=== PATIENT | male | born 1960 | race American Indian/Alaskan Native ===

== ENCOUNTER 2020-02-13 00:10 | Emergency (ER) | payer OTHER ==
--- NOTE | 2020-02-13 02:43 | Emergency Department Report ---
ED General Adult HPI - General Chief complaint: Abdominal Pain Stated complaint: UNABLE TO URINATE PUI?: No Time Seen by Provider: 02/13/20 02:09 Source: patient, RN notes reviewed Mode of arrival: Ambulatory Limitations: No Limitations - History of Present Illness Initial comments: The patient was evaluated in the emergency department for symptoms described in the history of present illness. He/she was evaluated in the context of the global COVID-19 pandemic, which necessitated consideration that the patient might be at risk for infection with the virus that causes COVID-19. Institutional protocols and algorithms that pertain to the evaluation of patients at risk for COVID-19 are in a state of rapid change based on in formation released by regulatory bodies including the CDC and federal and state organizations. These policies and algorithms were followed during the patient's care in the emergency department. Please note that these policies, procedures and recommendations changed on a rapid basis. The patient is a pleasant 59-year-old gentleman who is not known to myself previously. He has a history of hypertension and obesity. He presents to the ER today with a complaint of anxiety, and inability to urinate for a few hours. Prior to the symptoms, he denies all symptomatology. He states he only takes blood pressure medication, and does not take Flomax that he is aware of. He thinks his recent outpatient PSA check was "okay", but he is not certain. He denies dysuria, hematuria, testicular pain, and nocturia. A Haynes catheter was placed by nursing team prior to my personal evaluation, after my verbal instruction, 1100 cc of urine were obtained, the patient reports relief of all symptomatology, with exception of very mild anxiety at this time. He denies all other complaints, especially, including chest pain, shortness of breath, fever, chills, loss of taste and loss of smell. -: Sudden Consistency: now resolved Improves with: other (Placement of a Haynes catheter) Worsens with: none Associated Symptoms: denies other symptoms, other (Anxiety, inability to urinate) - Related Data Allergies Allergy/AdvReac Type Severity Reaction Status Date / Time No Known Allergies Allergy Unverified 02/13/20 01:44 ED Review of Systems ROS: Stated complaint: UNABLE TO URINATE Other details as noted in HPI Comment: All other systems reviewed and negative Genitourinary: other (Urinary retention). denies: testicular pain, testicular mass Psychiatric: anxiety ED Past Medical Hx - Past Medical History Previous Medical History?: Yes Hx Hypertension: Yes - Surgical History Past Surgical History?: No - Social History Smoking Status: Never Smoker Substance Use Type: None ED Physical Exam - General Limitations: No Limitations General appearance: alert, anxious, obese - Head Head exam: Present: atraumatic, normocephalic - Eye Eye exam: Present: normal appearance, EOMI. Absent: nystagmus - ENT ENT exam: Present: normal exam, normal orophraynx, mucous membranes moist, normal external ear exam - Neck Neck exam: Present: normal inspection, full ROM. Absent: tenderness, meningismus - Respiratory Respiratory exam: Present: normal lung sounds bilaterally. Absent: respiratory distress, wheezes, rales, rhonchi, stridor - Cardiovascular Cardiovascular Exam: Present: normal rhythm, tachycardia, normal heart sounds. Absent: systolic murmur, diastolic murmur, rubs, gallop - GI/Abdominal GI/Abdominal exam: Present: soft, normal bowel sounds. Absent: distended, tenderness, guarding, rebound, rigid, pulsatile mass - Rectal Rectal exam: Present: deferred - Extremities Exam Extremities exam: Present: normal inspection, full ROM, other (2+ pulses noted in the bilateral upper and lower extremities. There is no palpable cord. negative Homans sign. Muscular compartments are soft. The pelvis is stable.). Absent: pedal edema, calf tenderness - Back Exam Back exam: Present: normal inspection, full ROM. Absent: tenderness, CVA tenderness (R), CVA tenderness (L), paraspinal tenderness, vertebral tenderness - Neurological Exam Neurological exam: Present: alert, oriented X3, other (No facial droop. Tongue midline. Extraocular movements intact bilaterally. Facial sensation intact to light touch in V1, V2, V3 distribution bilaterally. 5 and a 5 strength in 4 extremities. Sensation intact to light touch in 4 extremities.). Absent: motor sensory deficit - Psychiatric Psychiatric exam: Present: anxious - Skin Skin exam: Present: warm, dry, intact, normal color. Absent: rash ED Course Vital Signs 02/13/20 02/13/20 02/13/20 00:14 03:18 03:19 Temperature 99.2 F Pulse Rate 133 H 114 H 114 H Respiratory 18 18 Rate Blood Pressure 160/113 138/81 Blood Pressure 138/81 [Left] O2 Sat by Pulse 98 97 Oximetry - Reevaluation(s) Reevaluation #1: 02/13/20 02:46 Differential diagnosis, including but not limited to: Urinary retention, anxiety, urinary tract infection Assessment and plan: 59-year-old gentleman, with improving tachycardia, heart rate now 110 to 115 bpm, states he is very anxious, with a primary complaint of urinary retention, which is now resolved. He denies all additional injuries and complaints. He is amenable to discharge with Haynes catheter to leg bag, and close outpatient urology follow-up. He states he is only taking lisinopril and Norvasc, to the best of his recollection. Urinalysis pending. Reassess after urinalysis ED Medical Decision Making - Lab Data Vital Signs 02/13/20 00:14 Temperature 99.2 F Pulse Rate 133 H Respiratory 18 Rate Blood Pressure 160/113 O2 Sat by Pulse 98 Oximetry Vital Signs 02/13/20 02/13/20 02/13/20 00:14 03:18 03:19 Temperature 99.2 F Pulse Rate 133 H 114 H 114 H Respiratory 18 18 Rate Blood Pressure 160/113 138/81 Blood Pressure 138/81 [Left] O2 Sat by Pulse 98 97 Oximetry Lab Results 02/13/20 Range/Units Unknown Urine Color Colorless (Yellow) Urine Turbidity Clear (Clear) Urine pH 6.0 (5.0-7.0) Ur Specific [place] 1.021 (1.003-1.030) Urine Protein <15 mg/dl (Negative) mg/dL Urine Glucose (UA) >=500 (Negative) mg/dL Urine Ketones Tr (Negative) mg/dL Urine Blood Neg (Negative) Urine Nitrite Neg (Negative) Urine Bilirubin Neg (Negative) Urine Urobilinogen < 2.0 (<2.0) mg/dL Ur Leukocyte Esterase Neg (Negative) Urine WBC (Auto) < 1.0 (0.0-6.0) /HPF Urine RBC (Auto) 2.0 (0.0-6.0) /HPF Critical care attestation.: If time is entered above; I have spent that time in minutes in the direct care of this critically ill patient, excluding procedure time. ED Disposition Clinical Impression: Urinary retention, Elevated blood pressure reading Disposition: TO HOME OR SELFCARE Is pt being admited?: No Does the pt Need Aspirin: No Condition: Good Instructions: Acute Urinary Retention, Male, [id number], Managing Your Hypertension Additional Instructions: Cultures were sent today, and results will be available in the next 3 to 5 days. Please have a primary care doctor contact the medical records department to obtain culture results. Keep the Haynes catheter in place to leg bag, and fol low-up with a urologist within the next 3 to 5 days. It is very important to follow-up with an outpatient urologist to exclude genitourinary/prostatic tumor, cancer, malignancy. This is most likely benign prostatic hypertrophy, which can sometimes develop in male patients as they grow older. However, it is very important to follow-up with an outpatient urologist as described. Please continue current blood pressure medications, and please continue current antihypertensive medications. Please return to the emergency room right away with new pain, worsened pain, migration of pain, projectile vomiting, change in mental status, confusion, inability to tolerate liquid feeds, new, worsened or different symptoms not present on the initial emergency room evaluation. Referrals: CESAR JHA MD [Staff Physician] - 3-5 Days [facility] [Provider Group] - 3-5 Days
[2020-02-13] MEDS ORDERED: METOPROLOL TARTRATE 50 MG TAB PO ONE (02:46)
[2020-02-13 02:58] LABS: Bilirubin,Urine NEG (Negative); Blood,Urine NEG (Negative); Color,Urine Colorless (Yellow); Protein,Urine <15 mg/dL mg/dL (Negative); Urobilinogen,Urine < 2.0 mg/dL (<2.0); WBC,Urine < 1.0 /HPF (0.0-6.0)
[2020-02-13 03:19] VITALS: BP 138/81
== END 2020-02-13 04:25 | disposition home or self-care (01) ==
LOC: ED 00:10 → EDBD 00:10 → ED 04:25
DX: R33.9 Retention of urine, unspecified (principal); I10 Essential (primary) hypertension
CPT/HCPCS: 51702; 81001

== ENCOUNTER 2020-02-25 04:33 | Emergency (ER) | payer OTHER ==
--- NOTE | 2020-02-25 05:44 | Emergency Department Report ---
ED General Adult HPI - General Chief complaint: Urogenital-Male Stated complaint: CATHETER BLOCKAGE Time Seen by Provider: 02/25/20 05:38 Source: patient Mode of arrival: Ambulatory Limitations: No Limitations - History of Present Illness Initial comments: Is a 59-year-old male with history of hypertension and obesity seen on 02/13/2020 for urinary retention. Patient was DC'd with indwelling Cisneros and follow-up with urology however bag was DC'd 2 days ago now with who presents with urinary retention again. Patient denies fever, chills, back pain. There is been no nausea vomiting. Patient states last void was yesterday. Will obtain bladder scan , Place indwelling Cisneros, arrange follow-up with urology. Current symptoms are exacerbated by movement. Current symptoms are relieved by urinary catheterization only. Patient denies history of renal stones. Onset/Timin -: days(s) Location: abdomen Radiation: abdomen Severity scale (0 -10): 4 (spasms) Consistency: constant Improves with: none Worsens with: other (attempted voiding ) Associated Symptoms: denies: chest pain, fever/chills, nausea/vomiting Treatments Prior to Arrival: none - Related Data Allergies Allergy/AdvReac Type Severity Reaction Status Date / Time No Known Allergies Allergy Unverified 02/13/20 01:44 ED Review of Systems ROS: Stated complaint: CATHETER BLOCKAGE Other details as noted in HPI Constitutional: denies: chills, fever Eyes: denies: eye pain, eye discharge, vision change ENT: denies: ear pain, throat pain Respiratory: denies: cough, shortness of breath, wheezing Cardiovascular: denies: chest pain, palpitations Endocrine: no symptoms reported Gastrointestinal: abdominal pain (lower abd spasms). denies: nausea, vomiting Genitourinary: urgency, dysuria. denies: frequency, hematuria, discharge, testicular pain, testicular mass Musculoskeletal: denies: back pain, joint swelling, arthralgia Skin: denies: rash, lesions Neurological: as per HPI Psychiatric: denies: anxiety, depression Hematological/Lymphatic: denies: easy bleeding, easy bruising ED Past Medical Hx - Past Medical History Previous Medical History?: Yes Hx Hypertension: Yes Additional medical history: BPH - Surgical History Past Surgical History?: No - Social History Smoking Status: Never Smoker Substance Use Type: None ED Physical Exam - General Limitations: No Limitations General appearance: alert, in no apparent distress - Head Head exam: Present: atraumatic, normocephalic - Eye Eye exam: Present: normal appearance, PERRL, EOMI - ENT ENT exam: Present: mucous membranes moist - Neck Neck exam: Present: normal inspection - Respiratory Respiratory exam: Present: normal lung sounds bilaterally. Absent: respiratory distress, wheezes, rales, rhonchi, stridor, chest wall tenderness - Cardiovascular Cardiovascular Exam: Present: regular rate, normal rhythm, normal heart sounds. Absent: systolic murmur, diastolic murmur, rubs, gallop - GI/Abdominal GI/Abdominal exam: Present: soft, normal bowel sounds. Absent: distended, tenderness, guarding, rebound, rigid, bruit, hernia - Rectal Rectal exam: Present: deferred - Extremities Exam Extremities exam: Present: normal inspection, normal capillary refill. Absent: full ROM, tenderness - Back Exam Back exam: Present: normal inspection, full ROM. Absent: tenderness, CVA tenderness (R), CVA tenderness (L) - Neurological Exam Neurological exam: Present: alert, oriented X3, CN II-XII intact, normal gait - Psychiatric Psychiatric exam: Present: normal affect, normal mood - Skin Skin exam: Present: warm, dry, intact, normal color. Absent: rash ED Course Vital Signs 02/25/20 02/25/20 04:53 06:25 Temperature 98.5 F 98.2 F Pulse Rate 140 H 98 H Respiratory 18 18 Rate Blood Pressure 154/88 Blood Pressure 148/92 [Left] O2 Sat by Pulse 98 98 Oximetry - Reevaluation(s) Reevaluation #1: bladder scane >300cc, indwelling cisneros placed 1200ccs clear yellow output noted initially , pain relieved, tachycardia resolved. 02/25/20 05:45 ED Medical Decision Making - Lab Data Labs 02/25/20 Unknown Urine Bilirubin Neg Urine RBC (Auto) < 1.0 Labs 02/25/20 Unknown Urine Bilirubin Neg Urine RBC (Auto) < 1.0 - Medical Decision Making this is straight forward urinary retention , plan: indwelling cisneros, UA pending, will follow up with urology as scheduled in 2 days, pt is currently a/o x 3, denies abd pain, indwelling cisneros intact, pt dc'd in stable condition at this time. repeat vital signs: 147/69 hr: 98, pain and spasm resolved, pt will be dc'd in stable condition at this time. Critical care attestation.: If time is entered above; I have spent that time in minutes in the direct care of this critically ill patient, excluding procedure time. ED Disposition Clinical Impression: Urinary retention Disposition: DC-01 TO HOME OR SELFCARE Is pt being admited?: No Does the pt Need Aspirin: No Condition: Stable Instructions: Acute Urinary Retention, Male Referrals: CESAR JHA MD [Staff Physician] - 2-3 Days Time of Disposition: 06:36
[2020-02-25 06:13] LABS: Bilirubin,Urine NEG (Negative); Blood,Urine NEG (Negative); Color,Urine Yellow (Yellow); Protein,Urine <15 mg/dL mg/dL (Negative); RBC,Urine < 1.0 /HPF (0.0-6.0); Urobilinogen,Urine < 2.0 mg/dL (<2.0); WBC,Urine < 1.0 /HPF (0.0-6.0)
[2020-02-25 08:06] VITALS: BP 142/89
== END 2020-02-25 08:07 | disposition home or self-care (01) ==
LOC: ED 04:33
DX: R33.9 Retention of urine, unspecified (principal); I10 Essential (primary) hypertension
CPT/HCPCS: 51702; 81001; 99283

== ENCOUNTER 2020-03-07 01:09 | Emergency (ER) | payer OTHER ==
[2020-03-07 03:04] VITALS: BP 123/74
--- NOTE | 2020-03-07 03:20 | Emergency Department Report ---
ED Male HPI - General Chief complaint: Urogenital-Male Stated complaint: CATHETER NEEDS IRRIGATING Time Seen by Provider: 03/07/20 03:01 Source: patient Mode of arrival: Ambulatory Limitations: No Limitations - History of Present Illness Initial comments: Patient is a 59-year-old male that presents emergency room with complaints of Haynes not draining. Patient states he had a Haynes placed on March 04, 2020 after a UroLift. Patient states the Haynes is been draining normally until approximately 4 5 hours ago it stopped draining. Patient states he is having a lot of bladder spasms and suprapubic fullness. Patient states the symptoms are uncomfortable. Patient states his symptoms are worsening. Patient states in the past he has had to have his Haynes irrigated for clots. Patient denies nausea vomiting. Patient denies fever and chills. Patient denies recent travel. Patient denies recent international travel. Patient denies exposure to the novel coronavirus. Patient denies sick contacts. Patient denies fever and chills. Patient denies cough. Patient denies diarrhea. Patient denies coming in contact with anybody with symptoms of the novel coronavirus. Complaint: other -: Sudden, hour(s) Severity: severe Quality: stabbing Consistency: constant Improves with: rest Worsens with: movement indwelling catheter denies other symptoms, urinary retention. denies: discharge, swelling, mass, rash, blood in urine, dysuria, fever, nausea/vomiting, incontinence - Related Data Sexually active: No Allergies Allergy/AdvReac Type Severity Reaction Status Date / Time No Known Allergies Allergy Unverified 02/13/20 01:44 ED Review of Systems ROS: Stated complaint: CATHETER NEEDS IRRIGATING Other details as noted in HPI Constitutional: denies: chills, fever Eyes: denies: eye pain, eye discharge, vision change ENT: denies: ear pain, throat pain Respiratory: denies: cough, shortness of breath, wheezing Cardiovascular: denies: chest pain, palpitations Endocrine: no symptoms reported Gastrointestinal: denies: abdominal pain, nausea, diarrhea Genitourinary: as per HPI. denies: urgency, dysuria Musculoskeletal: denies: back pain, joint swelling, arthralgia Skin: denies: rash, lesions Neurological: denies: headache, weakness, paresthesias Psychiatric: denies: anxiety, depression Hematological/Lymphatic: denies: easy bleeding, easy bruising ED Past Medical Hx - Past Medical History Previous Medical History?: Yes Hx Hypertension: Yes Additional medical history: BPH - Surgical History Past Surgical History?: Yes Additional Surgical History: Urolift 03/04/20 - Family History Family history: no significant - Social History Smoking Status: Never Smoker Substance Use Type: None ED Physical Exam - General Limitations: No Limitations General appearance: alert, in no apparent distress - Head Head exam: Present: atraumatic, normocephalic - Eye Eye exam: Present: normal appearance - ENT ENT exam: Present: mucous membranes moist - Neck Neck exam: Present: normal inspection - Respiratory Respiratory exam: Present: normal lung sounds bilaterally. Absent: respiratory distress - Cardiovascular Cardiovascular Exam: Present: regular rate, normal rhythm. Absent: systolic murmur, diastolic murmur, rubs, gallop - GI/Abdominal GI/Abdominal exam: Present: soft, normal bowel sounds. Absent: distended, tenderness, guarding - Rectal Rectal exam: Present: deferred - exam: Present: other (Indwelling catheter in place.) - Extremities Exam Extremities exam: Present: normal inspection - Back Exam Back exam: Present: normal inspection - Neurological Exam Neurological exam: Present: alert, oriented X3 - Psychiatric Psychiatric exam: Present: normal affect, normal mood - Skin Skin exam: Present: warm, dry, intact, normal color. Absent: rash ED Course Vital Signs 03/07/20 02:41 Temperature 99.1 F Pulse Rate 122 H Respiratory 18 Rate Blood Pressure 123/74 O2 Sat by Pulse 98 Oximetry - Reevaluation(s) Reevaluation #1: Patient's catheter was irrigated with normal saline and the urine began to flow. Clear yellow urine noted. Patient states that he is feeling much better. Patient states that all the bladder spasms have resolved. Patient tolerated procedure well. I discussed all results and clinical findings with patient. I discussed plan of care with patient. Patient agrees with plan of care. Patient is stable for discharge. Patient will be discharged home. Patient given discharge instructions. Patient voiced understanding of discharge instructions. 03/07/20 03:19 - Procedure Description Procedures done: Haynes irrigation. Patient's Haynes was irrigated with 60 cc of normal saline. Procedure was done in a sterile fashion. Patient tolerated procedure well. No complications noted. After the irrigation was done, clear yellow urine was noted. Patient symptoms improved. Patient's complaints resolved. ED Medical Decision Making - Medical Decision Making Patient is a 59-year-old male that presents emergency room with needing his Haynes irrigated. Patient has had the same problem in the past and his urologist has irrigated. Patient's Haynes was irrigated in the ER and. Patient responded well. Patient symptoms resolved after irrigation. Patient stable for discharge. Patient not require further emergency medical services. Patient discharge instructions. - Differential Diagnosis Haynes obstruction, urinary retention, bladder spasm Critical care attestation.: If time is entered above; I have spent that time in minutes in the direct care of this critically ill patient, excluding procedure time. ED Disposition Clinical Impression: Urinary retention Obstructed Haynes catheter Qualifiers: Encounter type: initial encounter Qualified Code(s): T83.091A - Other mechanical complication of indwelling urethral catheter, initial encounter Disposition: TO HOME OR SELFCARE Is pt being admited?: No Does the pt Need Aspirin: No Condition: Stable Instructions: Acute Urinary Retention, Male Additional Instructions: Patient to follow-up with primary care in 2 to 3 days. Patient to follow-up with urologist in 2 to 3 days. Patient to rest. Patient to increase water. Patient to avoid strenuous exercise or heavy lifting until cleared by neurologist. Patient to take Tylenol or ibuprofen as needed for pain. Patient to return to the ER if condition worsens, changes or new symptoms arise. Referrals: PRIMARY CARE, [Primary Care Provider] - 2-3 Days Time of Disposition: 03:22
== END 2020-03-07 03:51 | disposition home or self-care (01) ==
LOC: ED 01:09
DX: T83.098A Other mechanical complication of other urinary catheter, initial encounter (principal); R33.9 Retention of urine, unspecified; I10 Essential (primary) hypertension; Z98.890 Other specified postprocedural states; Y92.89 Other specified places as the place of occurrence of the external cause
CPT/HCPCS: 99282

== ENCOUNTER 2021-08-26 03:36 | Emergency (ER) | payer OTHER ==
--- NOTE | 2021-08-26 06:40 | Emergency Department Report ---
ED Male HPI - General Chief complaint: Urogenital-Male Stated complaint: ANXIETY/BP/HEART RATING Time Seen by Provider: 08/26/21 06:03 Source: patient Mode of arrival: Ambulatory Limitations: No Limitations - History of Present Illness Initial comments: 61-year-old male presents to the hospital complaining of urinary retention. Patient has not urinated since 11:30 PM last night. History of urine retention in the past requiring catheter placement. Patient has a history of UroLift placement in Mar 04 2020. Patient presented to the ED with suprapubic pain, hypertension, tachycardia, low-grade temperature. At time of my evaluation Haynes catheter has been placed with 700 mL of yellow urine in the catheter bag and improvement in symptoms and vitals. Patient's urologist is uninflated here located in [place]. Patient had a recent visit with his urologist several weeks ago. Patient reports that he had a cardiac stent placed on August 15, 2021 and feels like some of his new meds are causing urinary retention - Related Data Allergies Allergy/AdvReac Type Severity Reaction Status Date / Time No Known Allergies Allergy Verified 08/26/21 07:50 ED Review of Systems ROS: Stated complaint: ANXIETY/BP/HEART RATING Other details as noted in HPI Comment: All other systems reviewed and negative ED Past Medical Hx - Past Medical History Hx Hypertension: Yes Additional medical history: BPH - Surgical History Additional Surgical History: Urolift 03/04/20 - Social History Smoking Status: Never Smoker Substance Use Type: None ED Physical Exam - General Limitations: No Limitations - Other Other exam information: General: No acute distress Head: Atraumatic Eyes: normal appearance ENT: Moist mucous membranes Neck: Normal appearance, no midline tenderness Chest: Clear to auscultation bilaterally CV: Regular rate and rhythm Abdomen: Soft, normal bowel sounds, nontender, nondistended, no rebound or guarding : Haynes cath in place draining yellow urine Back: Normal inspection Extremity: Normal inspection, full range of motion Neuro: Alert O x 3, no facial asymmetry, speech clear, no gross motor sensory deficit Psych: Appropriate behavior Skin: No rash ED Course Vital Signs 08/26/21 08/26/21 03:42 07:52 Temperature 100.0 F H Pulse Rate 117 H 95 H Respiratory 20 16 Rate Blood Pressure 199/116 Blood Pressure 157/98 [Right] O2 Sat by Pulse 98 97 Oximetry ED Medical Decision Making - Lab Data Result diagrams: 08/26/21 07:00 08/26/21 07:00 Lab Results 08/26/21 08/26/21 08/26/21 Range/Units 06:31 07:00 07:00 WBC 5.6 (4.5-11.0) K/mm3 RBC 5.12 H (3.65-5.03) M/mm3 Hgb 15.6 H (11.8-15.2) gm/dl Hct 46.1 H (35.5-45.6) % MCV 90 (84-94) fl MCH 31 (28-32) pg MCHC 34 (32-34) % RDW 13.6 (13.2-15.2) % Plt Count 348 (140-440) K/mm3 Lymph % (Auto) 22.7 (13.4-35.0) % [place] % (Auto) 7.1 (0.0-7.3) % Eos % (Auto) 1.5 (0.0-4.3) % Baso % (Auto) 0.6 (0.0-1.8) % Lymph # (Auto) 1.3 (1.2-5.4) K/mm3 [place] # (Auto) 0.4 (0.0-0.8) K/mm3 Eos # (Auto) 0.1 (0.0-0.4) K/mm3 Baso # (Auto) 0.0 (0.0-0.1) K/mm3 Seg Neutrophils % 68.1 (40.0-70.0) % Seg Neutrophils # 3.8 (1.8-7.7) K/mm3 Sodium 139 (137-145) mmol/L Potassium 4.7 (3.6-5.0) mmol/L Chloride 102.7 (98-107) mmol/L Carbon Dioxide 25 (22-30) mmol/L Anion Gap 16 mmol/L BUN 12 (9-20) mg/dL Creatinine 1.1 (0.8-1.3) mg/dL Estimated GFR > 60 ml/min BUN/Creatinine Ratio 11 % Glucose 146 H (75-100) mg/dL Calcium 9.9 (8.4-10.2) mg/dL Urine Color Straw (Yellow) Urine Turbidity Clear (Clear) Urine pH 5.0 (5.0-7.0) Ur Specific [place] 1.010 (1.003-1.030) Urine Protein 30 mg/dl (Negative) mg/dL Urine Glucose (UA) Negative (Negative) mg/dL Urine Ketones Negative (Negative) mg/dL Urine Blood Trace (Negative) Urine Nitrite Negative (Negative) Ur Reducing Substances Not Reportable Urine Bilirubin Negative (Negative) Urine Ictotest Not Reportable Urine Urobilinogen < 2.0 (<2.0) mg/dL Ur Leukocyte Esterase Negative (Negative) Urine WBC (Auto) < 1.0 (0.0-6.0) /HPF Urine RBC (Auto) 3.0 (0.0-6.0) /HPF Urine Mucus Few /HPF - Medical Decision Making 61-year-old male with BPH and previous UroLift placement presents to the hospital urine retention Critical Care Time: No Critical care attestation.: If time is entered above; I have spent that time in minutes in the direct care of this critically ill patient, excluding procedure time. ED Disposition Clinical Impression: Urine retention Disposition: 01 HOME / SELF CARE / HOMELESS Is pt being admited?: No Does the pt Need Aspirin: No Condition: Stable Instructions: Indwelling Urinary Catheter Care, Adult, [id number], Acute Urinary Retention, Male Additional Instructions: Take the medication as prescribed. Follow-up with your doctor or doctor/clinic provided. Return if symptoms worsen as indicated by your discharge instructions. Referrals: your, urologist [Other] - 3-5 Days Time of Disposition: 08:08
[2021-08-26 06:48] LABS: Mucus,Urine FEW /HPF; WBC,Urine < 1.0 /HPF (0.0-6.0)
[2021-08-26 06:51] LABS: Bilirubin,Urine Negative (Negative); Color,Urine Straw (Yellow)
[2021-08-26 06:52] LABS: Blood,Urine Trace (Negative); Urobilinogen,Urine < 2.0 mg/dL (<2.0)
[2021-08-26 07:25] LABS: Basophils % (Auto) 0.6 % (0.0-1.8); Eosinophils # (Auto) 0.1 K/mm3 (0.0-0.4); Eosinophils % (Auto) 1.5 % (0.0-4.3); Hematocrit 46.1 % (35.5-45.6); Hemoglobin 15.6 gm/dl (11.8-15.2); Lymphocytes # (Auto) 1.3 K/mm3 (1.2-5.4); Lymphocytes % (Auto) 22.7 % (13.4-35.0); Mean Corpuscular HGB Conc 34 % (32-34); Mean Corpuscular Volume 90 fl (84-94); Monocytes # (Auto) 0.4 K/mm3 (0.0-0.8); Monocytes % (Auto) 7.1 % (0.0-7.3); Platelet Count 348 K/mm3 (140-440); Red Blood Count 5.12 M/mm3 (3.65-5.03); Red Cell Distribution Width 13.6 % (13.2-15.2)
[2021-08-26 07:45] LABS: BUN/Creatinine Ratio 11; Blood Urea Nitrogen 12 mg/dL (9-20); Calcium 9.9 mg/dL (8.4-10.2); Hemolysis Index 7
[2021-08-26 07:52] VITALS: BP 157/98
--- NOTE | 2021-08-26 17:57 | Electrocardiograph Report ---
[facility] Test Date: 2021-08-26 Test Time: 03:47:41 Pat Name: JOSE ROBERTO MINA Department: Room: Gender: M Child Care Provider: ALLISON : 1960 Requested By: BRANDON ALEXIS Order Number: [id number] Reading MD: Stella Saravia Measurements Intervals [place] Rate: 110 P: 66 WI: 171 QRS: -135 QRSD: 144 T: 76 QT: 354 QTc: 480 Interpretive Statements Sinus tachycardia Right bundle branch block Consider anterolateral infarct of undetermined age No previous ECG available for comparison Electronically Signed On 08-26-2021 17:57:04 EDT by Stella Saravia
== END 2021-08-26 09:00 | disposition home or self-care (01) ==
LOC: ED 03:36
DX: R33.9 Retention of urine, unspecified (principal)
CPT/HCPCS: 36415; 80048; 81001; 85025; 93005; 99283

== ENCOUNTER 2021-08-31 21:43 | Emergency (ER) | payer OTHER ==
[2021-08-31] MEDS ORDERED: SODIUM CHLORIDE 0.9% 1000 ML 1,000 ML ONE (23:33)
[2021-08-31] MEDS ORDERED: SODIUM CHLORIDE 0.9% 1000 ML 1,000 ML IV ONE (23:34)
[2021-08-31] MEDS ORDERED: TAMSULOSIN 0.4 MG CAP PO ONE (23:35)
--- NOTE | 2021-09-01 00:05 | Emergency Department Report ---
ED Male HPI - General Chief complaint: Urogenital-Male Stated complaint: URINARY CONCERNS Time Seen by Provider: 08/31/21 23:13 Source: patient Mode of arrival: Ambulatory Limitations: No Limitations - History of Present Illness Initial comments: 61-year-old male with multiple medical comorbidities presents for evaluation of reports of decreased urine output. He was seen by his urologist today and had urinary Cisneros catheter removed. Patient was referred for a prescription of Flomax which he has not picked up from the pharmacy. He reports today that he felt as though he needed to urinate and had difficulty. He complains of suprapubic pain. No other pain including back or flank pain. No nausea vomiting fevers or chills. Pain currently 2 out of 10. -: Gradual Location: abdomen Radiation: none Severity: mild Severity scale (0 -10): 4 Quality: aching, other (pressure) Consistency: constant Improves with: urination Worsens with: movement indwelling catheter denies other symptoms - Related Data Sexually active: No Allergies Allergy/AdvReac Type Severity Reaction Status Date / Time No Known Allergies Allergy Verified 08/26/21 07:50 ED Review of Systems ROS: Stated complaint: URINARY CONCERNS Other details as noted in HPI Comment: All other systems reviewed and negative Constitutional: no symptoms reported Eyes: denies: as per HPI, eye pain, eye discharge, vision change Respiratory: denies: no symptoms reported, cough, orthopnea, shortness of breath, SOB with exertion, SOB at rest Cardiovascular: denies: chest pain, palpitations, dyspnea on exertion, orthopnea, edema, syncope, paroxysmal nocturnal dyspnea Endocrine: denies: excessive sweating, flushing, intolerance to cold, intolerance to heat, increased hunger, increased thirst, increased urine, unexplained weight gain, unexplained weight loss Gastrointestinal: denies: abdominal pain, nausea, vomiting, diarrhea, constipation, hematemesis, melena Genitourinary: as per HPI, other (Urinary retention, decreased urine output). denies: urgency, dysuria, frequency, hematuria Musculoskeletal: denies: back pain, joint swelling, arthralgia Skin: denies: rash, lesions, change in color, change in hair/nails, pruritus Neurological: denies: headache, weakness, numbness, paresthesias, confusion, vertigo, other Psychiatric: denies: anxiety, depression, auditory hallucinations, visual hallucinations, homicidal thoughts, suicidal thoughts Hematological/Lymphatic: denies: as per HPI, easy bleeding, easy bruising, swollen glands ED Past Medical Hx - Past Medical History Previous Medical History?: Yes Hx Hypertension: Yes Additional medical history: BPH - Surgical History Past Surgical History?: Yes Hx Coronary Stent: Yes (08/10) Additional Surgical History: Urolift 03/04/20 - Social History Smoking Status: Never Smoker Substance Use Type: None ED Physical Exam - General Limitations: No Limitations General appearance: alert, in no apparent distress - Head Head exam: Present: atraumatic, normocephalic, normal inspection - Eye Eye exam: Present: normal appearance, PERRL, EOMI - ENT ENT exam: Present: normal exam, normal orophraynx, mucous membranes moist - GI/Abdominal GI/Abdominal exam: Present: soft, normal bowel sounds. Absent: distended, tenderness, guarding, rebound, rigid, diminished bowel sounds, hyperactive bowel sounds, hypoactive bowel sounds, organomegaly, mass, bruit, pulsatile mass - Back Exam Back exam: Present: normal inspection, full ROM. Absent: tenderness, CVA tenderness (R), CVA tenderness (L), muscle spasm, paraspinal tenderness, vertebral tenderness - Neurological Exam Neurological exam: Present: alert, oriented X3, CN II-XII intact, normal gait, motor sensory deficit, reflexes normal - Psychiatric Psychiatric exam: Present: normal affect, normal mood - Skin Skin exam: Present: warm, dry, intact, normal color ED Course Vital Signs 08/31/21 08/31/21 08/31/21 22:28 23:10 23:16 Temperature 98.9 F Pulse Rate 95 H 92 H 93 H Respiratory 18 Rate Blood Pressure 152/96 177/99 O2 Sat by Pulse 98 99 Oximetry 08/31/21 08/31/21 08/31/21 23:23 23:30 23:34 Temperature Pulse Rate 90 90 Respiratory 21 26 H Rate Blood Pressure 177/99 177/99 O2 Sat by Pulse 97 98 96 Oximetry 08/31/21 09/01/21 09/01/21 23:46 00:00 00:16 Temperature Pulse Rate 95 H 96 H 89 Respiratory 24 16 22 Rate Blood Pressure 184/98 184/98 184/98 O2 Sat by Pulse 100 99 Oximetry - Reevaluation(s) Reevaluation #1: 09/01/21 00:05 pt states he cannot urinate; pt has approximately 200-250cc of NS remaining in IV bag; he appears uncomfortable; pt elects to undergo placement of new urinary cisneros catheter. Pt's RN, Divina, informed @ 1203am ED Medical Decision Making - Lab Data Result diagrams: 09/01/21 00:34 09/01/21 00:34 - Radiology Data Radiology results: report reviewed - Medical Decision Making 61-year-old male with multiple medical comorbidities including recent history of urinary retention status post Cisneros catheter removal by his urologist presents for evaluation of complaints of decreased urine output and subsequent urinary retention. Vital signs stable here. Urinary Cisneros catheter placed by emergency department nurse after the patient was started on a liter of normal saline and reports pressure to his suprapubic region and inability urinate. He had initially gross hematuria which improved. Hemoglobin hematocrit, CBC, competence metabolic panel, and urinalysis are negative for acute pathology. Patient given intravenous fluid and gross hematuria continue to improve. Patient advised to follow-up with his urologist for reassessment and further management. 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 Patient discharged to home in stable condition with indwelling Cisneros bag. Prior to discharge she was given strict verbal and written return precautions. He verbalized understanding and agreement the plan of care Critical Care Time: No Critical care attestation.: If time is entered above; I have spent that time in minutes in the direct care of this critically ill patient, excluding procedure time. ED Disposition Clinical Impression: Urinary retention, Hematuria Disposition: HOME / SELF CARE / HOMELESS Is pt being admited?: No Does the pt Need Aspirin: No Condition: Stable Additional Instructions: Call your urologist to schedule an immediate follow-up appointment. Your urologist will see you and to determine when your Cisneros catheter will be removed. Take Flomax daily as directed by your urologist. Be sure to drink plenty of fluids to stay hydrated. Return to the nearest emergency department if you develop abdominal pain, decreased urine output, worsening bloody drainage from your Cisneros catheter, back or flank pain, vomiting, any fever of 100.4 Fahrenheit or higher, or if any other new worrisome symptoms develop
[2021-09-01 00:30] VITALS: BP 184/98
[2021-09-01 00:38] LABS: Bilirubin,Urine NEG (Negative); Blood,Urine MOD (Negative); Color,Urine Red (Yellow); Urobilinogen,Urine < 2.0 mg/dL (<2.0)
[2021-09-01 00:40] LABS: WBC,Urine < 1.0 /HPF (0.0-6.0)
[2021-09-01 00:46] LABS: Basophils % (Auto) 0.8 % (0.0-1.8); Eosinophils # (Auto) 0.1 K/mm3 (0.0-0.4); Eosinophils % (Auto) 2.5 % (0.0-4.3); Hematocrit 45.2 % (35.5-45.6); Hemoglobin 15.1 gm/dl (11.8-15.2); Lymphocytes # (Auto) 1.7 K/mm3 (1.2-5.4); Lymphocytes % (Auto) 32.3 % (13.4-35.0); Mean Corpuscular HGB Conc 34 % (32-34); Mean Corpuscular Volume 90 fl (84-94); Monocytes # (Auto) 0.4 K/mm3 (0.0-0.8); Monocytes % (Auto) 6.7 % (0.0-7.3); Platelet Count 320 K/mm3 (140-440); Red Blood Count 5.01 M/mm3 (3.65-5.03); Red Cell Distribution Width 13.3 % (13.2-15.2)
[2021-09-01 01:15] LABS: BUN/Creatinine Ratio 13; Blood Urea Nitrogen 16 mg/dL (9-20); Calcium 9.5 mg/dL (8.4-10.2); Hemolysis Index 6
[2021-09-01] MEDS ORDERED: SODIUM CHLORIDE 0.9% 1000 ML 1,000 ML IV ONE (02:45)
== END 2021-09-01 07:47 | disposition home or self-care (01) ==
LOC: ED 21:43
DX: R33.9 Retention of urine, unspecified (principal); R31.9 Hematuria, unspecified; I10 Essential (primary) hypertension; N40.0 Benign prostatic hyperplasia without lower urinary tract symptoms; N40.1 Benign prostatic hyperplasia with lower urinary tract symptoms; Z98.890 Other specified postprocedural states
CPT/HCPCS: 36415; 51702; 80048; 81001; 85025; 96360; 96361; 99283; J7030